=== PATIENT | female | born 1995 | race Caucasian/White ===

== ENCOUNTER 2017-01-16 03:18 | Emergency (ER) | payer BC ==
--- NOTE | 2017-01-16 03:48 | ER Document Report ---
ED General - General Chief Complaint: Vaginal Pain Stated Complaint: VAGINAL PAIN Mode of Arrival: Ambulatory Information source: Patient Notes: Patient presents emergency department with complaints of vaginal pain. She reports pain started yesterday. She was evaluated at an urgent care and treated for a UTI with Septra. Patient reports pain continues and if anything touches her vaginal area it is very painful. She reports she started her menses today and even that is hurting her vaginal area. She reports recent increase in sexual activity. She denies other symptoms like vaginal discharge. Denies history of STDs. Reports she had a temperature of 101.8 yesterday. She reports she also feels nauseated. Patient is a type I diabetic. TRAVEL OUTSIDE OF THE [place] IN LAST 30 DAYS: No - HPI Onset: Yesterday Onset/Duration: Sudden, Persistent Quality of pain: Burning Severity: Severe Pain Level: 5 Associated symptoms: None Exacerbated by: Other - water, touch Relieved by: Denies Similar symptoms previously: Yes Recently seen / treated by doctor: Yes - Related Data Allergies/Adverse Reactions: No Known Allergies Allergy (Unverified 01/16/17 03:29) Past Medical History - General Information source: Patient Last Menstrual Period: current - Social History Smoking Status: Unknown if Ever Smoked Cigarette use (# per day): No Frequency of alcohol use: None Lives with: Family Family History: Reviewed & Not Pertinent Patient has suicidal ideation: No Patient has homicidal ideation: No Endocrine Medical History: Reports: Hx Diabetes Mellitus Type 1 Renal/ Medical History: Denies: Hx Peritoneal Dialysis Surgical Hx: Negative Review of Systems - Review of Systems Notes: Review HPI for review of systems., All other systems negative Physical Exam - Vital signs Vitals: Temp Pulse Resp BP Pulse Ox 98.7 F 110 H 18 137/86 H 97 01/16/17 03:25 01/16/17 03:25 01/16/17 03:25 01/16/17 03:25 01/16/17 03:25 - Notes Notes: PHYSICAL EXAMINATION: GENERAL: Well-appearing and in no acute distress nontoxic looking HEAD: Atraumatic, normocephalic. EYES: Pupils equal round extraocular movements intact, sclera anicteric, conjunctiva are normal. ENT: nares patent, Moist mucous membranes. NECK: Normal range of motion, supple without lymphadenopathy LUNGS: CTAB and equal. No wheezes rales or rhonchi. HEART: Regular rate and rhythm without murmurs ABDOMEN: Soft, no tenderness. No guarding, no rebound EXTREMITIES: Normal range of motion, no pitting edema. No cyanosis. NEUROLOGICAL: Cranial nerves grossly intact. Normal sensory/motor . PSYCH: Normal mood, normal affect. SKIN: Warm, Dry, normal turgor, no rashes or lesions noted - Genitourinary External exam: Other - swollen labia majora &minor with excoriation thick cream colored discharge inbetween labias, no vaginal discharge noted Speculum exam: No: Vaginal discharge Vaginal bleeding: Mild Bimanuel exam: Normal Course - Vital Signs Vital signs: Temp Pulse Resp BP Pulse Ox 98.5 F 103 H 16 129/86 H 99 01/16/17 05:15 01/16/17 05:15 01/16/17 05:15 01/16/17 05:15 01/16/17 05:15 - Laboratory Laboratory results interpreted by me: 01/16/17 04:05 Urine Protein 30 H Urine Glucose (UA) >=500 H Urine Ketones 80 H Urine Blood LARGE H Urine Nitrite POSITIVE H Ur Leukocyte Esterase SMALL H Procedures - Pelvic Exam Pelvic exam Time completed: 04:09 Cultures obtained: Yes Wet prep obtained: Yes Herpes culture obtained: No POC sent to lab: No Foreign body removed: No Bimanual exam performed: Yes Witnessed by: albino renteria Discharge - Discharge Clinical Impression: Vaginal pain, Vulvovaginal candidiasis, Elevated blood pressure reading, UTI ( urinary tract infection) Condition: Stable Disposition: HOME, SELF-CARE Instructions: Fluconazole ([facility]), Vaginal Yeast Infection ([facility]), Urinary Tract Infection ([facility]), Topical Antifungal ([facility]), [facility] Additional Instructions: *You have been evaluated for vaginal pain, Vulvovaginal Candidiasis, UTI *Apply medication as prescribed *Continue to take antibiotics for UTI *Follow up with your [facility] or the health department for recheck within one week *Avoid sexual intercourse until follow up *Return to ED for worsening condition, changes, needs Monitor your blood pressure. Your blood pressure was elevated today. This may be because you were anxious, in pain or because you need medication. It is important to follow up with your primary care provider for full evaluation. Prescriptions: Clotrimazole [Clotrimazole-7] 1 applic VG QHS #1 cream.appl Forms: Elevated Blood Pressure
[2017-01-16 04:20] LABS: APPEARANCE,URINE SLIGHTLY-CLOUDY; BILIRUBIN,URINE NEGATIVE (NEGATIVE); GLUCOSE, URINE >=500 mg/dL (NEGATIVE); KETONES,URINE 80 mg/dL (NEGATIVE); LEUKOCYTE ESTERASE,URINE SMALL (NEGATIVE); NITRITE,URINE POSITIVE (NEGATIVE); PROTEIN,URINE 30 mg/dL (NEGATIVE); UROBILINOGEN,URINE NEGATIVE mg/dL (<2.0)
[2017-01-16 05:18] VITALS: BP 129/86
[2017-01-16 05:42] LABS: CHLAM PCR NOT DETECTED (NOT DETECT)
== END 2017-01-16 05:17 | disposition home or self-care (01) ==
LOC: ER 03:18
DX: B37.3 Candidiasis of vulva and vagina (principal); N39.0 Urinary tract infection, site not specified; R03.0 Elevated blood-pressure reading, without diagnosis of hypertension; R10.2 Pelvic and perineal pain; R11.0 Nausea; E10.9 Type 1 diabetes mellitus without complications
CPT/HCPCS: 81001; 81025; 87070; 87077; 87086; 87088; 87205; 87210; 87491; 87591; 99283

== ENCOUNTER 2018-05-12 22:47 | Emergency (ER) | payer BC ==
[2018-05-12] MEDS ORDERED: ACETAMINOPHEN 325 MG TABLET PO ONE (23:49)
--- NOTE | 2018-05-13 00:22 | ER Document Report ---
ED General - General Mode of Arrival: Ambulatory Information source: Patient TRAVEL OUTSIDE OF THE [place] IN LAST 30 DAYS: No <JUAN JOSE GALLEGOS - Last Filed: 05/13/18 00:38> <DENISA VAZQUEZ - Last Filed: 05/13/18 02:56> - General Chief Complaint: Pelvic Pain Stated Complaint: ABDOMINAL PAIN Time Seen by Provider: 05/13/18 00:17 Notes: Patient is a 22 year old female with insulin dependent diabetes (has insulin pump) presents to the emergency department complaining of lower abdominal pain onset prior to arrival. Patient states she was having intercourse and during it she began to have severe pelvic pain. She describes the pain as a sharpness across her entire lower abdomen. She states she has not had a pain like this before although she normally has more severe cramps during her period. Patient denies any vaginal bleeding or discharge or dysuria. She further denies an IUD. Patient states her next menstrual period is due to start on May 22. (JUAN JOSE GALLEGOS) - Related Data Allergies/Adverse Reactions: No Known Allergies Allergy (Unverified 01/16/17 03:29) Past Medical History - General Information source: Patient - Social History Smoking Status: Unknown if Ever Smoked Family History: Reviewed & Not Pertinent Endocrine Medical History: Reports: Hx Diabetes Mellitus Type 1 <JUAN JOSE GALLEGOS - Last Filed: 05/13/18 00:38> Review of Systems - Review of Systems Constitutional: No symptoms reported EENT: No symptoms reported Cardiovascular: No symptoms reported Respiratory: No symptoms reported Gastrointestinal: No symptoms reported Genitourinary: No symptoms reported Female Genitourinary: See HPI, Painful intercourse Musculoskeletal: No symptoms reported Skin: No symptoms reported Hematologic/Lymphatic: No symptoms reported Neurological/Psychological: No symptoms reported -: Yes All other systems reviewed and negative <JUAN JOSE GALLEGOS - Last Filed: 05/13/18 00:38> Physical Exam <JUAN JOSE GALLEGOS - Last Filed: 05/13/18 00:38> - Vital signs Interpretation: Normal - General General appearance: Appears well, Alert - HEENT Head: Normocephalic, Atraumatic Eyes: Normal Pupils: PERRL - Respiratory Respiratory status: No respiratory distress Chest status: Nontender Breath sounds: Normal Chest palpation: Normal - Cardiovascular Rhythm: Regular Heart sounds: Normal auscultation Murmur: No - Abdominal Inspection: Normal Distension: No distension Bowel sounds: Normal Tenderness: Tender - Suprapubic Organomegaly: No organomegaly - Back Back: Normal, Nontender - Extremities General upper extremity: Normal inspection, Nontender, Normal color, Normal ROM , Normal temperature General lower extremity: Normal inspection, Nontender, Normal color, Normal ROM , Normal temperature, Normal weight bearing. No: Nancy's sign - Neurological Neuro grossly intact: Yes Cognition: Normal Orientation: AAOx4 [place] Coma Scale Eye Opening: Spontaneous [place] Coma Scale Verbal: Oriented [place] Coma Scale Motor: Obeys Commands [place] Coma Scale Total: 15 Speech: Normal Motor strength normal: LUE, RUE, LLE, RLE Sensory: Normal - Psychological Associated symptoms: Normal affect, Normal mood - Skin Skin Temperature: Warm Skin Moisture: Dry Skin Color: Normal <DENISA VAZQUEZ - Last Filed: 05/13/18 02:56> - Vital signs Vitals: Temp Pulse Resp BP Pulse Ox 99.8 F 94 16 119/80 97 05/12/18 23:07 05/12/18 23:07 05/12/18 23:07 05/12/18 23:07 05/12/18 23:07 - Genitourinary Notes: Deferred (DENISA VAZQUEZ) Course <JUAN JOSE GALLEGOS - Last Filed: 05/13/18 00:38> - Diagnostic Test Radiology reviewed: Reports reviewed <DENISA VAZQUEZ - Last Filed: 05/13/18 02:56> - Re-evaluation Re-evalutation: 05/13/18 02:55 Patient symptoms are resolving. Ultrasound showing ovarian cysts and possibly recently ruptured cyst with moderate pelvic fluid. Patient's pain is nearly resolved. She is not tender along side of the other. No vaginal bleeding or discharge. Would prefer not to do pelvic exam this evening. She is to follow- up with her primary care doctor and return if any worsening or concerning symptoms. Of note patient is not and urine is within normal limits. Stable for discharge. (DENISA VAZQUEZ) - Vital Signs Vital signs: Temp Pulse Resp BP Pulse Ox 98.7 F 96 14 115/68 98 05/13/18 02:46 05/13/18 02:46 08/04/18 02:46 05/13/18 02:46 05/13/18 02:46 - Laboratory Laboratory results interpreted by me: 05/13/18 00:36 Urine Glucose (UA) >=500 H Urine Ketones 20 H Discharge <JUAN JOSE GALLEGOS - Last Filed: 05/13/18 00:38> <DENISA VAZQUEZ - Last Filed: 05/13/18 02:56> - Discharge Clinical Impression: Pelvic pain Condition: Stable Disposition: HOME, SELF-CARE Instructions: Ovarian Cyst ([facility]), Pelvic Pain ([facility]) Referrals: AMY MILLER, [employer]INE[employer] [Primary Care Provider] - Follow up as needed [facility] [Provider Group] - Follow up in 3-5 days Scribe Attestation: 05/13/18 02:56 I personally performed the services described in the documentation, reviewed and edited the documentation which was dictated to the scribe in my presence, and it accurately records my words and actions. (DENISA VAZQUEZ) Scribe Documentation - Scribe Written by Scribe:: Bernabe Mckeon, 05/13/2018 00:45 acting as scribe for :: [place] <JUAN JOSE GALLEGOS - Last Filed: 05/13/18 00:38>
[2018-05-13] MEDS ORDERED: ACETAMINOPHEN 325 MG TABLET PO ONE (00:38)
[2018-05-13 01:18] LABS: APPEARANCE,URINE CLEAR; BILIRUBIN,URINE NEGATIVE (NEGATIVE); COLOR,URINE STRAW; GLUCOSE, URINE >=500 mg/dL (NEGATIVE); KETONES,URINE 20 mg/dL (NEGATIVE); LEUKOCYTE ESTERASE,URINE NEGATIVE (NEGATIVE); NITRITE,URINE NEGATIVE (NEGATIVE); PROTEIN,URINE NEGATIVE (NEGATIVE); URINE SPECIFIC GRAVITY 1.036; UROBILINOGEN,URINE NEGATIVE mg/dL (<2.0)
--- NOTE | 2018-05-13 02:21 | RADIOLOGY REPORT (SQ) ---
EXAM DESCRIPTION: US PELVIS COMPLETED DATE/TME: 05/13/2018 00:38 CLINICAL HISTORY: 22 years, Female, pelvic pain, sudden onset COMPARISON: None. TECHNIQUE: Transvaginal LIMITATIONS: None. FINDINGS: 2.7 cm indeterminate complex cystic component of the left ovarian fossa is adjacent to an otherwise unremarkable left 4.1 x 2.8 x 3.6 cm ovary. Moderate free fluid. 8 cm uterus, 1.0 cm thick endometrial stripe, 3.1 cm cervical length, nabothian cysts, 3.4 cm right ovary, appear unremarkable in size, shape, echotexture, and vascularity. IMPRESSION: 2.7 cm indeterminate cystic component of the left ovarian fossa may indicate a hemorrhagic paraovarian cyst. Moderate free pelvic fluid. Differential diagnosis includes pelvic abscess, endometrioma, benign neoplasm, and bowel artifact. Consider IV and oral contrast CT, MRI, or 6-8 week surveillance sonogram, as clinically warranted.
[2018-05-13 02:48] VITALS: BP 115/68
== END 2018-05-13 02:48 | disposition home or self-care (01) ==
LOC: ER 22:47
DX: R10.2 Pelvic and perineal pain (principal); N94.10 Unspecified dyspareunia; E10.9 Type 1 diabetes mellitus without complications; Z96.41 Presence of insulin pump (external) (internal)
CPT/HCPCS: 76856; 81001; 81025; 93976; 99284